=== PATIENT | female | born 1970 | race Hispanic/Latino ===

== ENCOUNTER 2018-12-11 12:36 | Emergency (ER) | payer MEDICAID ==
--- NOTE | 2018-12-11 13:31 | Event Note ---
ED Screening Note Date of service: 12/11/18 Time: 13:28 ED Screening Note: This is a 48 y.o. F. that presents to the ER with dizziness and lightheadedness for 3 days. Patient states the last time this happened she ate chocolate which improved symptoms. States this time she ate and no changes. This initial assessment/diagnostic orders/clinical plan/treatment(s) is/are subject to change based on patients health status, clinical progression and re- assessment by fellow clinical providers in the ED. Further treatment and workup at subsequent clinical providers discretion. Patient/guardian urged not to elope from the ED as their condition may be serious if not clinically assessed and managed. Initial orders include: Accucheck
--- NOTE | 2018-12-11 16:30 | Emergency Department Report ---
HPI - General Chief Complaint: Dizziness Time Seen by Provider: 12/11/18 13:28 - HPI HPI: 48 yo white female who comes to ER with dizziness and fatigue. No fever or chills. ambulatory. non toxic. Family member brought her to ER. Pt has not seen MD or taken anything at home to feel better. ED Past Medical Hx - Past Medical History Previous Medical History?: Yes Hx Seizures: Yes Hx Asthma: Yes - Surgical History Past Surgical History?: No - Family History Family history: no significant - Social History Smoking Status: Never Smoker Substance Use Type: None - Medications Home Medications: Home Medications Medication Instructions Recorded Confirmed Last Taken Type Potassium Chloride [K-Dur] 20 meq PO QDAY #3 tablet 12/11/18 Unknown Rx ED Review of Systems ROS: Stated complaint: DIZZY Other details as noted in HPI Comment: All other systems reviewed and negative Physical Exam - Physical Exam Vital Signs: Vital Signs 12/11/18 13:25 Temperature 97.8 F Pulse Rate 64 Respiratory 15 Rate Blood Pressure 109/60 [Left] O2 Sat by Pulse 97 Oximetry Physical Exam: alert and oriented s1s2 lungs cta abd snt no cva tenderness no edema no jvd no nystagmus not able to replicate dizziness ambulatory taking po ED Course Vital Signs 12/11/18 13:25 Temperature 97.8 F Pulse Rate 64 Respiratory 15 Rate Blood Pressure 109/60 [Left] O2 Sat by Pulse 97 Oximetry ED Medical Decision Making - Lab Data Result diagrams: 12/11/18 16:47 12/11/18 16:47 - EKG Data EKG shows normal: sinus rhythm Rate: normal - EKG Data When compared to previous EKG there are: no significant change Interpretation: no acute changes - Medical Decision Making Labs 12/11/18 12/11/18 12/11/18 16:47 16:47 16:47 WBC 6.9 RBC 4.05 Hgb 11.6 Hct 34.9 MCV 86 MCH 29 MCHC 33 RDW 14.4 Plt Count 277 Sodium 139 Potassium 3.2 L Chloride 99.8 Carbon Dioxide 28 Anion Gap 14 BUN 8 Creatinine 0.4 L Estimated GFR > 60 BUN/Creatinine Ratio 20 Glucose 96 Calcium 8.9 Total Bilirubin 0.20 AST 14 ALT 10 Alkaline Phosphatase 58 Troponin T < 0.010 Total Protein 7.4 Albumin 4.0 Albumin/Globulin Ratio 1.2 Vital Signs 12/11/18 12/11/18 13:25 17:40 Temperature 97.8 F 98.3 F Pulse Rate 64 56 L Respiratory 15 18 Rate Blood Pressure 109/60 131/71 [Left] O2 Sat by Pulse 97 Oximetry Lab Results 12/11/18 12/11/18 12/11/18 Range/Units 13:40 16:47 16:47 WBC 6.9 (4.5-11.0) K/mm3 RBC 4.05 (3.65-5.03) M/mm3 Hgb 11.6 (10.1-14.3) gm/dl Hct 34.9 (30.3-42.9) % MCV 86 (79-97) fl MCH 29 (28-32) pg MCHC 33 (30-34) % RDW 14.4 (13.2-15.2) % Plt Count 277 (140-440) K/mm3 Sodium 139 (137-145) mmol/L Potassium 3.2 L (3.6-5.0) mmol/L Chloride 99.8 (98-107) mmol/L Carbon Dioxide 28 (22-30) mmol/L Anion Gap 14 mmol/L BUN 8 (7-17) mg/dL Creatinine 0.4 L (0.7-1.2) mg/dL Estimated GFR > 60 ml/min BUN/Creatinine Ratio 20 % Glucose 96 (65-100) mg/dL POC Glucose 148 H (70-105) Calcium 8.9 (8.4-10.2) mg/dL Total Bilirubin 0.20 (0.1-1.2) mg/dL AST 14 (5-40) units/L ALT 10 (7-56) units/L Alkaline Phosphatase 58 (35-129) units/L Troponin T (0.00-0.029) ng/mL Total Protein 7.4 (6.3-8.2) g/dL Albumin 4.0 (3.9-5) g/dL Albumin/Globulin Ratio 1.2 % Urine Color (Yellow) Urine Turbidity (Clear) Urine pH (5.0-7.0) Ur Specific [place] (1.003-1.030) Urine Protein (Negative) mg/dL Urine Glucose (UA) (Negative) mg/dL Urine Ketones (Negative) mg/dL Urine Blood (Negative) Urine Nitrite (Negative) Urine Bilirubin (Negative) Urine Urobilinogen (<2.0) mg/dL Ur Leukocyte Esterase (Negative) Urine WBC (Auto) (0.0-6.0) /HPF Urine RBC (Auto) (0.0-6.0) /HPF U Epithel Cells (Auto) (0-13.0) /HPF Urine Bacteria (Auto) (Negative) /HPF Urine Mucus /HPF Urine Yeast (Budding) /HPF Urine HCG, Qual (Negative) 12/11/18 12/11/18 Range/Units 16:47 18:04 WBC (4.5-11.0) K/mm3 RBC (3.65-5.03) M/mm3 Hgb (10.1-14.3) gm/dl Hct (30.3-42.9) % MCV (79-97) fl MCH (28-32) pg MCHC (30-34) % RDW (13.2-15.2) % Plt Count (140-440) K/mm3 Sodium (137-145) mmol/L Potassium (3.6-5.0) mmol/L Chloride (98-107) mmol/L Carbon Dioxide (22-30) mmol/L Anion Gap mmol/L BUN (7-17) mg/dL Creatinine (0.7-1.2) mg/dL Estimated GFR ml/min BUN/Creatinine Ratio % Glucose (65-100) mg/dL POC Glucose (70-105) Calcium (8.4-10.2) mg/dL Total Bilirubin (0.1-1.2) mg/dL AST (5-40) units/L ALT (7-56) units/L Alkaline Phosphatase (35-129) units/L Troponin T < 0.010 (0.00-0.029) ng/mL Total Protein (6.3-8.2) g/dL Albumin (3.9-5) g/dL Albumin/Globulin Ratio % Urine Color Yellow (Yellow) Urine Turbidity Slightly-cloudy (Clear) Urine pH 7.0 (5.0-7.0) Ur Specific [place] 1.013 (1.003-1.030) Urine Protein <15 mg/dl (Negative) mg/dL Urine Glucose (UA) Neg (Negative) mg/dL Urine Ketones Neg (Negative) mg/dL Urine Blood Sm (Negative) Urine Nitrite Neg (Negative) Urine Bilirubin Neg (Negative) Urine Urobilinogen 4.0 (<2.0) mg/dL Ur Leukocyte Esterase Lg (Negative) Urine WBC (Auto) 75.0 H (0.0-6.0) /HPF Urine RBC (Auto) 6.0 (0.0-6.0) /HPF U Epithel Cells (Auto) 3.0 (0-13.0) /HPF Urine Bacteria (Auto) 2+ (Negative) /HPF Urine Mucus Few /HPF Urine Yeast (Budding) 3+ /HPF Urine HCG, Qual Negative (Negative) labs noted k replaced pts family is in a hurry to get home; pt left without ua being resulted. Will follow and call pt if pos. Pt aware and will leave a phone no. [phone] Pt phoned and aware of UTI and that she need antibiotics. She can not get to a pharm and has no one to go get an antibiotic for her. She is going to work on a ride and someone to get her med and provider will call her later today and follow up. pt did not get her K filled either. - Differential Diagnosis ro anemia/ro uti Critical care attestation.: If time is entered above; I have spent that time in minutes in the direct care of this critically ill patient, excluding procedure time. ED Disposition Clinical Impression: Hypokalemia, UTI (urinary tract infection) Disposition: TO HOME OR SELFCARE Is pt being admited?: No Does the pt Need Aspirin: No Condition: Stable Instructions: Dizziness (ED) Prescriptions: Potassium Chloride [K-Dur] 20 meq PO QDAY #3 tablet Referrals: GENEVIEVE CUENCA MD [Staff Physician] - 3-5 Days Time of Disposition: 18:38
[2018-12-11 17:01] LABS: Hematocrit 34.9 % (30.3-42.9); Hemoglobin 11.6 gm/dl (10.1-14.3); Mean Corpuscular HGB Conc 33 % (30-34); Mean Corpuscular Volume 86 fl (79-97); Platelet Count 277 K/mm3 (140-440); Red Blood Count 4.05 M/mm3 (3.65-5.03); Red Cell Distribution Width 14.4 % (13.2-15.2)
[2018-12-11 17:18] LABS: Alanine Aminotransferase 10 units/L (7-56); BUN/Creatinine Ratio 20; Blood Urea Nitrogen 8 mg/dL (7-17); Calcium 8.9 mg/dL (8.4-10.2); Hemolysis Index 15
[2018-12-11 17:41] VITALS: BP 131/71
[2018-12-11] MEDS ORDERED: K-DUR PO ONE (17:47)
[2018-12-11 19:07] LABS: Bacteria,Urine 2+ /HPF (Negative); Bilirubin,Urine NEG (Negative); Blood,Urine SM (Negative); Color,Urine Yellow (Yellow); Mucus,Urine FEW /HPF; Protein,Urine <15 mg/dL mg/dL (Negative)
[2018-12-11 19:09] LABS: HCG Qualitative,Urine Negative (Negative)
== END 2018-12-11 18:58 | disposition home or self-care (01) ==
LOC: ED 12:36
DX: E87.6 Hypokalemia (principal); N39.0 Urinary tract infection, site not specified; J45.909 Unspecified asthma, uncomplicated; Z79.899 Other long term (current) drug therapy
CPT/HCPCS: 36415; 80053; 81001; 81025; 82962; 84484; 85027; 87076; 87086; 87186; 93005; 93010

== ENCOUNTER 2021-08-29 17:38 | Emergency (ER) | payer MEDICAID ==
[2021-08-30] MEDS ORDERED: IBUPROFEN 600 MG TAB PO ONE (01:11)
[2021-08-30] MEDS ORDERED: predniSONE 20 MG TAB PO ONE (01:11)
[2021-08-30] MEDS ORDERED: ONDANSETRON 4 MG ODT TAB PO ONE (01:11)
[2021-08-30] MEDS ORDERED: traMADol 50 MG TAB PO ONE (01:11)
--- NOTE | 2021-08-30 01:36 | Emergency Department Report ---
ED Extremity Problem HPI - General Chief complaint: Extremity Injury, Upper Stated complaint: LT FOOT PAIN Source: patient Mode of arrival: Ambulatory Limitations: No Limitations - History of Present Illness Initial comments: Patient is a 50-year-old female with a history of asthma and seizures who presents to the ED with complaint of acute onset persistent left plantar foot pa in for the last 3 days. Patient states that she had left lateral foot fracture 2 months ago which has since healed but states that 3 days ago she woke up and was unable to bear weight on the left foot as the pain is worse with ambulation. Patient denies dizziness, syncope, fall, traumatic injury, numbness and tingling or weakness of lower extremities bilaterally or back pain. MD Complaint: extremity pain (left plantar foot pain), joint paint (left plantar foot pain) -: Sudden, days(s) (3) Location: left, lower extremity (left foot pain), other (left foot pain) History of Same: Yes -: Yes arthralgia (left plantar foot), No fever, No associated dyspnea, No associated chest pain Radiation: none Severity scale (0 -10): 8 Quality: aching, sharp Consistency: constant Improves with: rest Worsens with: weight bearing, walking, exertion, palpation Associated Symptoms: denies other symptoms, arthralgias (left plantar foot pain). denies: chest pain, shortness of breath, fever, myalgias - Related Data Previous Rx's Medication Instructions Recorded Last Taken Type Potassium Chloride [K-Dur] 20 meq PO QDAY #3 tablet 12/11/18 Unknown Rx Ibuprofen [Motrin] 800 mg PO Q8HR PRN #30 tablet 08/30/21 Unknown Rx predniSONE [Deltasone] 60 mg PO QDAY #15 tab 08/30/21 Unknown Rx Allergies Allergy/AdvReac Type Severity Reaction Status Date / Time oxycodone [From OxyContin] Allergy Unknown Verified 08/29/21 19:39 procaine [From Novocain] Allergy Unknown Verified 08/29/21 19:39 ED Review of Systems ROS: Stated complaint: LT FOOT PAIN Other details as noted in HPI Constitutional: denies: chills, fever Eyes: denies: eye pain, eye discharge, vision change ENT: denies: ear pain, throat pain Respiratory: denies: cough, shortness of breath, wheezing Cardiovascular: denies: chest pain, palpitations Endocrine: no symptoms reported Gastrointestinal: denies: abdominal pain, nausea, diarrhea Genitourinary: denies: urgency, dysuria, discharge Musculoskeletal: arthralgia (left plantar foot pain). denies: back pain, joint swelling Skin: denies: rash, lesions Neurological: denies: headache, weakness, paresthesias Psychiatric: denies: anxiety, depression Hematological/Lymphatic: denies: easy bleeding, easy bruising ED Past Medical Hx - Past Medical History Hx Seizures: Yes Hx Asthma: Yes - Social History Smoking Status: Never Smoker Substance Use Type: None - Medications Home Medications: Home Medications Medication Instructions Recorded Confirmed Last Taken Type Potassium Chloride [K-Dur] 20 meq PO QDAY #3 tablet 12/11/18 Unknown Rx Ibuprofen [Motrin] 800 mg PO Q8HR PRN #30 tablet 08/30/21 Unknown Rx predniSONE [Deltasone] 60 mg PO QDAY #15 tab 08/30/21 Unknown Rx ED Physical Exam - General Limitations: No Limitations General appearance: alert, in no apparent distress - Head Head exam: Present: atraumatic, normocephalic, normal inspection - Eye Eye exam: Present: normal appearance, PERRL, EOMI Pupils: Present: normal accommodation - ENT ENT exam: Present: normal exam, normal orophraynx, mucous membranes moist, TM's normal bilaterally, normal external ear exam - Neck Neck exam: Present: normal inspection, full ROM. Absent: tenderness - Respiratory Respiratory exam: Present: normal lung sounds bilaterally. Absent: respiratory distress, wheezes, rales, rhonchi, chest wall tenderness, accessory muscle use, decreased breath sounds - Cardiovascular Cardiovascular Exam: Present: normal rhythm, bradycardia, normal heart sounds. Absent: systolic murmur, diastolic murmur, rubs, gallop - GI/Abdominal GI/Abdominal exam: Present: soft, normal bowel sounds. Absent: tenderness, guarding, rebound, hyperactive bowel sounds, hypoactive bowel sounds, organomegaly, mass - Extremities Exam Extremities exam: Present: normal inspection, full ROM, tenderness (Palpable left plantar foot tenderness), normal capillary refill. Absent: pedal edema, joint swelling - Back Exam Back exam: Present: normal inspection, full ROM. Absent: tenderness, CVA tenderness (R), CVA tenderness (L), muscle spasm, paraspinal tenderness, vertebral tenderness - Neurological Exam Neurological exam: Present: alert, oriented X3, CN II-XII intact, normal gait, reflexes normal - Psychiatric Psychiatric exam: Present: normal affect, normal mood - Skin Skin exam: Present: warm, dry, intact, normal color. Absent: rash ED Course Vital Signs 08/29/21 18:56 Temperature 98.0 F Pulse Rate 58 L Respiratory 18 Rate Blood Pressure 104/52 O2 Sat by Pulse 98 Oximetry ED Medical Decision Making - Medical Decision Making This is a 50-year-old female with a history of asthma and seizures who presents to the ED with complaint of acute onset persistent left plantar foot pain for the last 3 days. Patient states that she had left lateral foot fracture 2 months ago which has since healed but states that 3 days ago she woke up and was unable to bear weight on the left foot as the pain is worse with ambulation. In the ED, patient is alert and oriented x3 and is not in any distress. Patient was treated for pain in the ED based on the history and physical exam findings of suspected left plantar fasciitis. Patient was discharged home on medications and advised to follow-up with her primary care physician in 7 to 10 days for reevaluation or return to the ED immediately if symptoms get worse. - Differential Diagnosis Plantar fasciitis; foot sprain; foot contusion; muscle strain; tendinitis Critical care attestation.: If time is entered above; I have spent that time in minutes in the direct care of this critically ill patient, excluding procedure time. ED Disposition Clinical Impression: Plantar fasciitis of left foot Muscle strain of left foot Qualifiers: Encounter type: initial encounter Qualified Code(s): S96.912A - Strain of unspecified muscle and tendon at ankle and foot level, left foot, initial encounter Disposition: HOME / SELF CARE / HOMELESS Is pt being admited?: No Does the pt Need Aspirin: No Condition: Stable Instructions: Muscle Strain, [id number], Plantar Fasciitis Rehab-Sports[facility], Plantar Fasciitis Additional Instructions: Take medication with food, drink plenty of fluids, follow-up with your primary care physician in 7-10 days for reevaluation. Return to the ED immediately if symptoms get worse. Prescriptions: predniSONE [Deltasone] 60 mg PO QDAY #15 tab Ibuprofen [Motrin] 800 mg PO Q8HR PRN #30 tablet PRN Reason: Pain , Severe (7-10) Referrals: CARBUCCIA,BELA, MD [Primary Care Provider] - 3-5 Days Time of Disposition: 01:35 Print Language: ESTONIAN
[2021-08-30 05:12] VITALS: BP 110/49
== END 2021-08-30 02:40 | disposition home or self-care (01) ==
LOC: ED 17:38
DX: S96.912A Strain of unspecified muscle and tendon at ankle and foot level, left foot, initial encounter (principal); M72.2 Plantar fascial fibromatosis; R56.9 Unspecified convulsions; M19.90 Unspecified osteoarthritis, unspecified site; Z88.5 Allergy status to narcotic agent; Z88.8 Allergy status to other drugs, medicaments and biological substances; X58.XXXA Exposure to other specified factors, initial encounter; Y93.89 Activity, other specified; Y92.89 Other specified places as the place of occurrence of the external cause; Y99.8 Other external cause status
CPT/HCPCS: 99282; J3490; Q0162